=== PATIENT | male | born 1950 | race Caucasian/White ===

== ENCOUNTER 2017-03-31 09:31 | Outpatient (CLI) | payer OTHER ==
[2014-04-27 10:18] VITALS: BP 157/83
[2017-03-31 10:24] LABS: eGFR (African) > 60; eGFR (Non-African) 54
== END 2017-03-31 10:00 ==
LOC: LAB 09:31
PROVIDERS: ATTEND Family Medicine
DX: E11.9 Type 2 diabetes mellitus without complications (principal); Z11.59 Encounter for screening for other viral diseases
CPT/HCPCS: 36415; 80053; 80061; 82043; 83036; 86803

== ENCOUNTER 2018-04-06 11:03 | Outpatient (CLI) | payer OTHER ==
[2014-04-27 10:18] VITALS: BP 157/83
[2018-04-06 12:18] LABS: BASOPHILS % 0.3 (0.0-1.5); MEAN CORPUSCULAR HEMOGLOBIN 28.3 pg (28.0-34.0); MONOCYTES % 5.5 % (0.0-11.0); NEUTROPHILS # 4.4 # k/uL (1.4-7.7)
[2018-04-06 13:26] LABS: eGFR (Non-African) > 60
== END 2018-04-06 11:08 | disposition home or self-care (01) ==
LOC: LABRHC 11:03
PROVIDERS: ATTEND Family Medicine
DX: E11.9 Type 2 diabetes mellitus without complications (principal); Z12.5 Encounter for screening for malignant neoplasm of prostate; Z00.00 Encounter for general adult medical examination without abnormal findings
CPT/HCPCS: 36415; 80053; 80061; 83036; 84153; 85025